=== PATIENT | female | born 1975 | race Caucasian/White ===

== ENCOUNTER 2024-12-18 13:14 | Emergency (ER) | payer MEDICAID, SELFPAY ==
[2024-12-18 13:16] VITALS: PULSE 114; O2SAT 96
[2024-12-18 13:30] VITALS: BP 128/100; PULSE 108; RESP 15; TEMP 35.4; O2SAT 96
--- NOTE | 2024-12-18 13:54 | EDNOTE_ITS ---
ED Seizures RME/HPI General Chief Complaint: Seizure Stated Complaint: SEIZURE Time Seen by Provider: 12/18/24 13:18 Arrival date/time: 12/18/24 13:14 Limitations: no limitations RME / HPI RME / HPI Narrative: 49 year old female with history of profound intellectual disability, Stefan Danlos Syndrome, epilepsy, scoliosis, GERD presents to the ED [facility] from [facility] for evaluation of seizure today. Per medics report, the daycare staff described seizure as the patient had stopped breathing, turned blue, and looked to the side last about 1 minute. State when they arrived, the patient was docile and lethargic. Daycare staff state at baseline the patient is feisty and en route began pulling wires off and did not allow to have oxygen placed. Medics deny witnessing any seizures. Patient saturating 96% on room air. Review of Systems Review of Systems ROS Unobtainable: unobtainable due to medical condition Past Medical History Past Medical History NEUROLOGIC: Positive Epilepsy CARDIAC: Negative Congestive Heart Failure RESPIRATORY: Negative Chronic Obstructive Pulmonary Disease (COPD) GASTROINTESTINAL: Positive Gastroesophageal Reflux Disease GENITOURINARY: Negative Renal Disease MUSCULOSKELETAL: Positive Scoliosis ENDOCRINE: Negative Diabetes Mellitus Type 1 or Diabetes Mellitus Type 2 Social History SMOKING STATUS: Unknown if ever smoked ED Exam General Limitations: Present no limitations General appearance: Present other (Awake, opens eyes spontaneously, nonverbal at baseline, interactive, follows commands ) Head Head exam: Present atraumatic Eye Eye exam: Present normal appearance, PERRL and EOMI ENT ENT exam: Present normal exam, normal oropharynx and mucous membranes moist Neck Neck exam: Present normal inspection, full ROM and trachea midline Chest Chest inspection: Present normal inspection and symmetric chest wall rise Respiratory Respiratory exam: Present normal lung sounds bilaterally Cardiovascular Cardiovascular exam: Present regular rate, normal rhythm and normal heart sounds Abdominal Exam Abdominal exam: Present soft and normal bowel sounds Extremities Exam Extremities exam: Present normal inspection and full ROM (of bilateral upper extremities ) Neurological Exam Neurological exam: Present other (Awake, opens eyes spontaneously, nonverbal at baseline, interactive, follows commands, moves upper extremities bilaterally) Psychiatric Psychiatric exam: Present normal affect and normal mood Skin Skin exam: Present warm, dry, intact and normal color Course Course Course Narrative: 1410: I spoke with patients caregiver at bedside. Reports the patient does have hisory of Epilepsy however has not had a seizure in such a long time that she is currently not on any seizure medications. Will order loading dose of Keppra. Quality Measures none Orders Category Date Time Status Straight [In and Out Catheter] X1 Care 12/18/24 14:16 Completed CBC Stat Lab 12/18/24 13:44 Completed CMP [Comprehensive Metabolic Panel] Stat Lab 12/18/24 13:44 Completed INR [Prothrombin Time with INR] Stat Lab 12/18/24 13:44 Completed T4 (Thyroxine) Stat Lab 12/18/24 13:44 Completed Thyroid Stimulating Hormone Stat Lab 12/18/24 13:44 Completed Troponin I Stat Lab 12/18/24 13:44 Completed UA, C/S IF [Urinalysis, C/S if Indicated] Stat Lab 12/18/24 16:18 Completed levETIRAcetam INJ [Keppra Inj] Med 12/18/24 14:14 Discontinued 1,000 mg IVP X1 ONE Vital Signs Vital signs: Vital Signs Temperature 95.8 F L 12/18/24 13:30 Pulse Rate 108 H 12/18/24 13:30 Respiratory Rate 15 12/18/24 13:30 Blood Pressure 128/100 H 12/18/24 13:30 Pulse Oximetry (%) 96 12/18/24 13:30 Oxygen Delivery Method Room Air 12/18/24 13:30 Pulse ox is 96% on room air which is adequate. Seizure MDM Narrative MDM Narrative:: Thea Grajeda am scribing for and in the presence of Dr. Howell. Patient data External records reviewed:: EMS form Clinical information provided by:: EMS Social determinants that could affect healthcare access:: housing (senior living resident ) Patient has the following chronic illnesses:: profound intellectual disability, Stefan Danlos Syndrome, epilepsy, scoliosis, GERD How is presenting disease/condition affected by chronic disease/condition?: exacerbated by Evaluation data The following diagnostics were reviewed and interpreted by me:: lab results Lab and/or radiology exams considered but not ordered:: None Interpretation Summary: CBC unremarkable, glucose slightly elevated 131 otherwise CMP unremarkable. Medications / Prescriptions Medications or Prescriptions considered but not ordered:: None Medication administrations:: Medication Administration History Discontinued Medications Levetiracetam (Levetiracetam Inj 100 Mg/Ml Vial 5ml) 1,000 mg IVP X1 ONE Stop: 12/18/24 14:15 Last Admin: 12/18/24 14:41 Dose: 1,000 mg Documented By: EF See above Consultations Consultation(s) initiated? (list below): No Diagnosis Seizure Differential Diagnosis: intractable seizure disorder, focal seizure, generalized seizure and epileptic seizure Most likely diagnosis given after review of the tests above:: Epileptic seizure Admission Indicated Admission indicated?: not indicated Admission Request Was there a request for admission?: No Disposition Plan Disposition Plan: Discharge Discharge Attestation Discharge Attestation: The patient and all family members were given an opportunity to ask questions and understood the discharge instructions. Discharge instructions specifically effects, indications for sooner follow up or return to the emergency department, and the expected course of current diagnosis. Patient condition: Stable Discharge Plan Plan Patient Disposition: Home w/HOME HEALTH Prescriptions/Referrals Referrals: Elin Ovalle DO [Primary Care Provider] - In 1 week Problem List Clinical Impression: Epileptic seizure Patient/Caregiver Discharge Instructions Education Materials: Epilepsy How Seizures Affect Body Additional Instructions: Today your labs and workup did not identify a reversible cause for the source of your seizure. I recommend that you discuss with your primary care doctor as well as your neurologist your episode of a breakthrough seizure and whether or not they recommend starting you on antiepileptic medications again. Please return immediately if you have emergency symptoms or any other symptom of concern. Print Language: French Stand Alone Forms: Michelle Award Info., Patient Portal Info Letter
[2024-12-18 14:15] LABS: Basophils # (Auto) 0.0 Thou/mm3 (0.0-0.2); Basophils % (Auto) 0 % (0-2.5); Eosinophils # (Auto) 0.1 Thou/mm3 (0.0-0.5); Eosinophils % (Auto) 1 % (0-10); Hematocrit 39.3 % (36.0-46.0); Hemoglobin 13.4 g/dL (12.0-16.0); Immature Granulocytes Auto 0.04 Thou/mm3 (0.00-0.00); Lymphocytes # (Auto) 3.8 Thou/mm3 (1.0-4.8); Lymphocytes % (Auto) 52 % (10-50); Mean Corpuscular HGB Conc 34.1 g/dl (31.0-37.0); Mean Corpuscular Hemoglobin 28.8 pg (25.0-35.0); Mean Corpuscular Volume 85 fL (80-100); Monocytes # (Auto) 0.6 Thou/mm3 (0.0-0.8); Monocytes % (Auto) 8 % (0-12); Neutrophils # (Auto) 2.8 Thou/mm3 (1.8-7.7); Neutrophils % (Auto) 38 % (37-80); Nucleated Red Blood Cell # 0.00 Thou/mm3 (0.00-0.00); Nucleated Red Blood Cell % 0 /100 WBC (0); Platelet Count 251 Thou/mm3 (140-440); RDW Standard Deviation 43.3 fL (36.4-46.3); Red Blood Count 4.65 Miln/mm3 (4.00-5.20); White Blood Count 7.4 Thou/mm3 (3.6-11.0)
[2024-12-18 14:23] LABS: INR 1.0 (0.9-1.3); Prothrombin Time 11.3 Seconds (9.0-12.2)
[2024-12-18 14:32] LABS: Alanine Aminotransferase 11 U/L (10-49); Albumin, Serum 4.6 gm/dL (3.5-5.0); Albumin/Globulin Ratio 1.5 (1.2-2.2); Alkaline Phosphatase 82 U/L (46-116); Anion Gap 13 (7-16); Aspartate Amino Transferase 26 U/L (0-34); BUN/Creatinine Ratio 8 Ratio (12-20); Bilirubin,Total 0.4 mg/dL (0.3-1.2); Blood Urea Nitrogen 5 mg/dL (9-23); Calcium 9.2 mg/dL (8.3-10.6); Calcium (Corrected) 9.2 mg/dL (8.5-10.1); Carbon Dioxide 26.0 mMol/L (20.0-31.0); Chloride 99 mMol/L (98-107); Creatinine (Component) 0.6 mg/dL (0.6-1.3); Globulin 3.0 gm/dL (2.3-3.5); Glucose 131 mg/dL (74-106); Osmolality,Calculated 274 (275-295); Potassium 3.4 mMol/L (3.4-5.1); Sodium 138 mMol/L (136-145); Thyroid Stimulating Hormone 5.58 uIU/mL (0.55-4.78); Total Protein 7.6 gm/dL (5.7-8.2); Troponin I < 0.020 ng/mL (0.0-0.045); eGFR > 60 See Note
[2024-12-18 14:41] LABS: T4 (Thyroxine) 7.0 mcg/dL (4.5-10.9)
[2024-12-18] MEDS: levETIRAcetam INJ 100 MG/ML VIAL 5ML 1000 MG IVP (14:41)
[2024-12-18 16:02] VITALS: BP 118/85; PULSE 101; RESP 27; TEMP 35.8; O2SAT 98
[2024-12-18 16:33] LABS: Collection Type, Urine Catheter; WBC,Urine 0 /hpf (0-5)
[2024-12-18 16:35] LABS: Bilirubin,Urine Negative (Negative); Blood,Urine Trace-Intact (Negative); Clarity,Urine Clear (Clear/Hazy); Color,Urine Lt Yellow (Lt Yel-Yel); Culture Indicated,Urine Not Indicated; Glucose, Urine Negative (Negative); Ketones,Urine 1+ (Negative); Leukocyte Esterase,Urine Negative (Negative); Nitrite,Urine Negative (Negative); PH,Urine 7.5 (5.0-7.0); Protein,Urine Negative (Neg - Trace); Specific Gravity,Urine 1.020 (1.001-1.035); Urobilinogen,Urine 0.2 mg/dL (0.0-1.0)
[2024-12-18 16:57] LABS: Squamous Epithelial Cell,Urine 1 /hpf (0-5)
[2024-12-18 16:58] LABS: RBC,Urine 1 /hpf (0-3)
[2024-12-18 17:57] VITALS: BP 105/82; PULSE 90; RESP 15; O2SAT 97
== END 2024-12-18 18:05 | disposition home or self-care (01) ==
PROVIDERS: Emergency Provider Emergency Medicine; PCP Family Medicine
DX: G40.909 Epilepsy, unspecified, not intractable, without status epilepticus (principal); F73 Profound intellectual disabilities
CPT/HCPCS: 36415; 80053; 81001; 84436; 84443; 84484; 85025; 85610; 96374; 99283; J1953